=== PATIENT | female | born 1955 | race Caucasian/White ===

== ENCOUNTER 2017-03-04 15:05 | Outpatient (CLI) | payer OTHER ==
--- NOTE | 2017-03-04 17:49 | RAD ---
LUMBAR SPINE FOUR VIEW 03/04/17 HISTORY: Lumbar radiculopathy. COMPARISON: Lumbar spine MRI 2016. There is enlargement of the left L5 transverse process which articulates with the sacrum, lumbosacra l transitional vertebra. There is new anterolisthesis of L4 over L5 relative to the MRI examination. In the upright position, this is approximately 6 mm which with flexion increases to approximately 8 mm and with extension decreases to approximately 4 mm. No acute fracture of the vertebral bodies. IMPRESSION: 1. Left IIIa lumbosacral transitional vertebra. 2. New anterolisthesis of L4 with translation with flexion and extension. POS: [facility]
== END 2017-03-04 15:06 | disposition home or self-care (01) ==
LOC: TBSIIMAG 15:05
PROVIDERS: ATTEND Neurological Surgery
DX: M54.16 Radiculopathy, lumbar region (principal); M43.16 Spondylolisthesis, lumbar region
CPT/HCPCS: 72110

== ENCOUNTER 2017-03-10 06:48 | Outpatient (CLI) | payer OTHER ==
[2017-03-10] MEDS ORDERED: Gadobenate Dimeglumine 529 MG/1 ML (20ML VIAL) ONE (16:26)
--- NOTE | 2017-03-15 10:48 | MRI ---
EXAM: LUMBAR SPINE MRI WITH AND WITHOUT CONTRAST: HISTORY: Lumbar radiculopathy. Low back and right leg pain. Previous surgery 1 year ago. COMPARISON: 08/26/15. TECHNIQUE: Lumbar spine MRI is performed with and without intravenous Gadolinium administration. Multisequenti al, multiplanar imaging is performed. FINDINGS: Based on the previous examination, there appears to be partial sacralization of the L5 vertebral bod y. There is appropriate T1 marrow signal intensity of the lumbar vertebrae. Lumbar spine vertebral body height is maintained. There is no fracture. No significant STIR hyperintensity to suggest ed liang or ligamentous injury. No abnormal enhancement of the vertebral bodies. No abnormal enhancement of the thecal sac includin g the cauda equina and conus medullaris. There is symmetric signal intensity of the psoas muscles. Appropriate signal intensity of the visua lized solid organs. Conus medullaris terminates at the mid L1 level. There is stable edema involving bilateral pedicles at L5. T11-T12 and T12-L1: No significant central canal stenosis or foraminal narrowing. L1-L2: Adequate disk hydration. No significant central canal stenosis. Neural foramen are patent. L2-L3: Minimal disk desiccation. No significant loss of disk space height. No significant posteri or disk abnormality. No significant central canal stenosis. Foramina are patent. L3-L4: Disk desiccation without significant loss of disk space height. Mild ligamentum flavum thic kening and facet hypertrophy. No significant central canal stenosis. Foramen are patent. L4-L5: Disk desiccation with mild loss of disk space height. No significant posterior disk abnorma lity. No significant central canal stenosis. Neural foramen are patent. There is a small amount o f fluid in both intraarticular facet joints. The L5-S1 disk space level is excluded. Inferior to the L4-L5 disk space, in the right subarticular zone, there is a T2 hyperintense focus m easuring 1.2 cm. There is partial obscuration of the traversing right L5 nerve root. Based on the sagittal images, there is mild narrowing of the right neural foramen due to synovial cyst. The left neural foramen is patent. IMPRESSION: Limited evaluation of the L4-L5, L5-S1 levels. There appears to be a synovial cyst in the right sub articular zone inferior to the L4-L5 disk space with mass effect and displacement of the traversing right L5 nerve root. There is mild right foraminal narrowing at L5-S1, based upon the sagittal imag es. Evaluation is limited and incomplete. Additional imaging is recommended. Results of the study were discussed with Dr. Ziegler 03/15/17 at 8:57 a.m. Note, the patient was instructed to return for peewee tional/complete imaging of lumbar spine. The patient states she is claustrophobic and has, up to th is point, chosen not to come in for additional imaging. CODE CR POS: [facility]
== END 2017-03-10 06:49 | disposition home or self-care (01) ==
LOC: MRI 06:48
PROVIDERS: ATTEND Neurological Surgery
DX: M54.16 Radiculopathy, lumbar region (principal)
CPT/HCPCS: 72158; A9579

== ENCOUNTER 2017-04-05 10:15 | Outpatient (CLI) | payer OTHER | END 2017-04-05 10:16 | disposition home or self-care (01) | LOC: LABBT 10:15 | PROVIDERS: ATTEND Neurological Surgery | DX: Z01.818 Encounter for other preprocedural examination (principal); M43.16 Spondylolisthesis, lumbar region; M54.16 Radiculopathy, lumbar region ==

== ENCOUNTER 2017-04-12 10:10 | Day surgery (SDC) | payer OTHER ==
[2017-04-05 10:49] VITALS: BMI 28.9
[2017-04-12] MEDS ORDERED: CEFAZOLIN/Water 2 GM/20 ML SYRINGE ONE ×2 (11:45→19:39)
[2017-04-12] MEDS ORDERED: Midazolam HCl 2 mg/2 ml Vial ONE ×2 (11:56→17:36)
[2017-04-12] MEDS ORDERED: Albuterol Sulfate 2.5 mg/3 ml Neb ONE (12:00)
[2017-04-12] MEDS ORDERED: Fentanyl 100 MCG/2 ML VIAL ONE ×4 (13:29→17:19)
[2017-04-12] MEDS ORDERED: Promethazine HCl 25 MG/ML VIAL ONE (13:29)
[2017-04-12] MEDS ORDERED: Sodium Chloride 0.9% 0 ML ONE (13:39)
[2017-04-12] MEDS ORDERED: Bupivacaine/Epinephrine 0.25% 30 ML VIAL ONE (14:58)
[2017-04-12] MEDS ORDERED: Thrombin 5000 UNITS/5 ML VIAL ONE (15:03)
[2017-04-12] MEDS ORDERED: Propofol 200 MG/20 ML VIAL ONE (15:45)
[2017-04-12] MEDS ORDERED: ePHEDrine/0.9% NaCl/PF SYRINGE 50 mg/10 ml ONE (15:45)
[2017-04-12] MEDS ORDERED: Glycopyrrolate 0.2 MG/ML 5 ML SYRINGE ONE (15:45)
[2017-04-12] MEDS ORDERED: Lidocaine 1% PF 5 ML VIAL ONE (15:45)
[2017-04-12] MEDS ORDERED: PHENYLEPHRINE-NS 100 MCG/ML 10 ML SYRINGE ONE (15:45)
[2017-04-12] MEDS ORDERED: Ondansetron HCl/PF 4 MG/2 ML Vial ONE (15:45)
[2017-04-12] MEDS ORDERED: HYDROmorphone 0.5 MG/0.5 ML SYRINGE ONE (18:01)
[2017-04-12] MEDS ORDERED: tiZANidine HCl 4 MG TAB ONE (18:39)
[2017-04-12] MEDS ORDERED: HYDROcodone/Acetaminophen 5/325 mg Tablet ONE (19:18)
--- NOTE | 2017-04-13 13:00 | OP ---
DATE OF PROCEDURE: 04/12/2017 SURGEON: Stevenson Ziegler M.D. WINDOWS AND DOORS INSTALLER: Jad Richter PA-C. INDICATION: Pain. DIAGNOSES: Lumbar spondylolisthesis, lumbar synovial cyst, lumbar radiculopathy. PROCEDURES PERFORMED: Reoperation L4-L5 lumbar facetectomy, synovial cyst resection and posterolater al instrumented fusion with placement of allograft and placement of autograft. ANESTHESIA: General. TECHNIQUE: The patient was brought into the operating room and placed under general anesthesia. She was flipped from a supine to a prone position on the operating room table. A linear incision was pl anned over the L4-L5 segment. After prepping and draping and after an appropriate operative pause, t he incision was created. The soft tissues were swept away from midline. A self-retaining retractor was placed in the wound for optimal exposure. After confirming the appropriate levels, an Adson shana eur as well as a high-speed cutting drill bit as well as Kerrisons were used to perform facetectomy a t L4-L5 bilaterally. This included lamina. A synovial cyst was identified and subsequently resected . With the aide of C-arm fluoroscopy, pedicle screws were placed bilaterally at L4-L5. Rods were pl aced across the screw heads and final tightened. Intraoperative imaging was obtained to confirm appr opriate placement of hardware. Allograft and autograft material was placed within the lateral confin es of the instrumentation construct. The wound was irrigated. Hemostasis was maintained throughout. The wound was then closed in anatomic layers and a pressure dressing was applied. There were no kn own procedural complications.
== END 2017-04-13 20:00 | disposition home or self-care (01) ==
LOC: SDC 10:10
PROVIDERS: ATTEND Neurological Surgery
PROC: 0QB00ZZ Excision of Lumbar Vertebra, Open Approach (ICD-10-PCS; principal; 2017-04-12)
PROC: 00BY0ZZ Excision of Lumbar Spinal Cord, Open Approach (ICD-10-PCS; principal; 2017-04-12)
PROC: 0SG0071 Fusion of Lumbar Vertebral Joint with Autologous Tissue Substitute, Posterior Approach, Posterior Column, Open Approach (ICD-10-PCS; principal; 2017-04-12)
DX: M71.38 Other bursal cyst, other site (principal); M43.16 Spondylolisthesis, lumbar region; M54.16 Radiculopathy, lumbar region; F17.210 Nicotine dependence, cigarettes, uncomplicated; E78.5 Hyperlipidemia, unspecified; F32.9 Major depressive disorder, single episode, unspecified; F41.9 Anxiety disorder, unspecified; Z83.3 Family history of diabetes mellitus; Z82.49 Family history of ischemic heart disease and other diseases of the circulatory system; Z79.890 Hormone replacement therapy; Z79.1 Long term (current) use of non-steroidal anti-inflammatories (NSAID); Z79.51 Long term (current) use of inhaled steroids; Z79.899 Other long term (current) drug therapy; Z90.710 Acquired absence of both cervix and uterus; Z90.49 Acquired absence of other specified parts of digestive tract; Z98.890 Other specified postprocedural states
CPT/HCPCS: 76001; 96374; A4216; C1713; J1170; J2001; J2250; J2405; J2550; J2704; J3010; J3490; J7611

== ENCOUNTER 2017-06-03 08:31 | Outpatient (CLI) | payer OTHER ==
--- NOTE | 2017-06-03 10:00 | RAD ---
TWO VIEWS LUMBAR SPINE: Date: 06-03-17 Comparison: 03-04-17 History: Lumbar radiculopathy. FINDINGS: Bilateral L4 and L5 pedicle screws are present with vertically oriented interlocking rods. There is a nterolisthesis of L4 on L5 measuring approximately 6 mm, similar when compared to the 03-04-17 exam. N o evidence for acute fracture or dislocation. No radiographic evidence of hardware failure. There is an incompletely imaged sclerotic focus within the proximal femur on the right. If there are symptoms referable to the right hip, dedicated right hip imaging is advised as this sclerotic lesion is not fu lly imaged. IMPRESSION: Post-operative changes within the lumbar spine as detailed above. Incidental findings noted. Code T POS: [facility]
== END 2017-06-03 08:32 | disposition home or self-care (01) ==
LOC: TBSIIMAG 08:31
PROVIDERS: ATTEND Neurological Surgery
DX: M54.16 Radiculopathy, lumbar region (principal)
CPT/HCPCS: 72100

== ENCOUNTER 2019-01-09 14:49 | Outpatient (CLI) | payer OTHER ==
--- NOTE | 2019-01-09 15:51 | BD ---
"PRELIMINARY REPORT" DEXA BONE DENSITY SCAN: 01/09/2019 HISTORY: Low back pain. FINDINGS: BMD (g/cm2) T-SCORE LEFT FEMORAL NECK 0.742 -1.0 TOTAL PROXIMAL LEFT FEMUR 0.971 0.2 RIGHT FEMORAL NECK 0.703 -1.3 TOTAL PROXIMAL RIGHT FEMUR 0.938 0.0 The FRAX Fracture Risk Assessment Tool reports a 10 year fracture risk in an untreated patient at 15% for major osteoporotic fracture and 0.5%-0.6% for hip fracture. IMPRESSION: Osteopenia within the right femoral neck correlates with a moderately increased risk for fracture. Transcribed Date/Time: 01/09/2019 5:51 PM
--- NOTE | 2019-01-09 16:11 | MMO ---
Bilateral MAMMO Bilat Screen [facility]. CLINICAL HISTORY: Patient is 63 years old and is seen for screening. The patient has no family history of breast cancer. The patient has no personal history of cancer. VIEWS: The views performed were: bilateral craniocaudal with tomosynthesis and bilateral mediolateral oblique with tomosynthesis. FILMS COMPARED: The present examination has been compared to a prior imaging study performed at [facility] on 09/02/2011. MAMMOGRAM FINDINGS: The breasts are heterogeneously dense, which could obscure a lesion on mammography. There are benign appearing calcifications seen in both breasts. There are no suspicious masses, suspicious calcifications, or new areas of architectural distortion. IMPRESSION: THERE IS NO MAMMOGRAPHIC EVIDENCE OF MALIGNANCY. A ROUTINE FOLLOW-UP MAMMOGRAM IN 1 YEAR IS RECOMMENDED. THE RESULTS OF THIS EXAM WERE SENT TO THE PATIENT. ACR BI-RADS Category 2 - Benign finding MAMMOGRAPHY NOTE: 1. A negative mammogram report should not delay a biopsy if a dominant of clinically suspicious mass is present. 2. Approximately 10% to 15% of breast cancers are not detected by mammography. 3. Adenosis and dense breasts may obscure an underlying neoplasm. Reported by: SRUTHI PARK MD Electonically Signed: [id number]
== END 2019-01-09 14:50 | disposition home or self-care (01) ==
LOC: BICMAMMO 14:49
PROVIDERS: ATTEND Family Medicine
DX: Z12.31 Encounter for screening mammogram for malignant neoplasm of breast (principal); M54.5 Low back pain; M85.851 Other specified disorders of bone density and structure, right thigh
CPT/HCPCS: 77063; 77067; 77080

== ENCOUNTER 2019-05-15 20:30 | Outpatient (CLI) | payer OTHER | END 2019-05-15 20:31 | disposition home or self-care (01) | LOC: SLEEPLAB 20:30 | PROVIDERS: ATTEND Family Medicine | DX: G47.33 Obstructive sleep apnea (adult) (pediatric) (principal); G47.9 Sleep disorder, unspecified; G47.00 Insomnia, unspecified; I10 Essential (primary) hypertension; J44.9 Chronic obstructive pulmonary disease, unspecified; R09.02 Hypoxemia | CPT/HCPCS: 95810 ==

== ENCOUNTER 2019-09-01 14:11 | Outpatient (CLI) | payer OTHER ==
--- NOTE | 2019-09-01 14:44 | RAD ---
RADIOGRAPH CHEST 2 VIEW: DATE: 09/01/2019 HISTORY: 64-year-old female with dyspnea FINDINGS: The cardiothymic silhouette is normal. The visualized lung noyola are clear. The osseous structures a ppear normal. IMPRESSION: Normal.
--- NOTE | 2019-09-01 14:47 | RAD ---
RADIOGRAPH LEFT ANKLE 3 VIEWS: DATE: 09/01/2019 HISTORY: 64-year-old female with left ankle swelling, erythema, heat, and pain. FINDINGS: Ankle mortise is congruent. There is no evidence of fracture. There is no subluxation or dislocation. There are no high-grade degenerative changes. Talar dome is maintained. There is diffuse soft tissue edema, especially laterally. No evidence of destructive osseous lesion. IMPRESSION: 1. No osseous abnormality. 2. Soft tissue edema.
--- NOTE | 2019-09-01 15:24 | RAD ---
THREE VIEWS OF THE LEFT FOOT: 09/01/19 INDICATION: Swelling and redness in the left foot for seven days. FINDINGS: There is scattered osteoarthrosis of the left foot. No acute fracture or subluxation is evident. Lis franc alignment is preserved. Radiopaque foreign body is demonstrated. IMPRESSION: No acute osseous abnormality. POS: [facility]
== END 2019-09-01 14:12 | disposition home or self-care (01) ==
LOC: BICRAD 14:11
PROVIDERS: ATTEND Family Medicine
DX: M25.572 Pain in left ankle and joints of left foot (principal); R59.1 Generalized enlarged lymph nodes; R60.0 Localized edema
CPT/HCPCS: 71046

== ENCOUNTER 2020-02-23 14:58 | Outpatient (CLI) | payer OTHER ==
--- NOTE | 2020-02-23 15:37 | RAD ---
RIGHT FOOT 3 VIEWS: HISTORY: Fall. Pain. COMPARISON: None. FINDINGS: Nondisplaced fracture through the proximal phalanx neck small toe with minimal impaction. Moderate d orsal edema of the forefoot. IMPRESSION: Minimally impacted fracture proximal phalanx small toe neck. POS: [facility]
--- NOTE | 2020-02-23 15:51 | BD ---
EXAM: DEXA bone density examination HISTORY: 64-year-old postmenopausal female for screening COMPARISON: None FINDINGS: Right femoral neck--bone mineral density0.684; T score -1.5 Total proximal right femur--bone mineral density 1.013; T score 0.6 Left femoral neck--bone mineral density0.717; T score -1.2 Total proximal left femur--bone mineral density 0.942; T score 0.0 IMPRESSION: Osteopenia. This patient has a 10 year WHO fracture risk of a major osteoporotic fracture of 8.3% and of a hip fracture of 0.8%.
--- NOTE | 2020-02-23 16:07 | MMO ---
Bilateral MAMMO Bilat Screen [facility]. CLINICAL HISTORY: Patient is 64 years old and is seen for screening. The patient has no family history of breast cancer. The patient has no personal history of cancer. VIEWS: The views performed were: bilateral craniocaudal with tomosynthesis and bilateral mediolateral oblique with tomosynthesis. FILMS COMPARED: The present examination has been compared to prior imaging studies performed at [facility] on 09/02/2011 and 01/09/2019. This study has been interpreted with the assistance of computer-aided detection. MAMMOGRAM FINDINGS: The breasts are heterogeneously dense, which could obscure a lesion on mammography. There are benign appearing calcifications seen in both breasts. There are no suspicious masses, suspicious calcifications, or new areas of architectural distortion. IMPRESSION: THERE IS NO MAMMOGRAPHIC EVIDENCE OF MALIGNANCY. A ROUTINE FOLLOW-UP MAMMOGRAM IN 1 YEAR IS RECOMMENDED. THE RESULTS OF THIS EXAM WERE SENT TO THE PATIENT. ACR BI-RADS Category 2 - Benign finding MAMMOGRAPHY NOTE: 1. A negative mammogram report should not delay a biopsy if a dominant of clinically suspicious mass is present. 2. Approximately 10% to 15% of breast cancers are not detected by mammography. 3. Adenosis and dense breasts may obscure an underlying neoplasm. Reported by: SIRISHA KUMAR MD Electonically Signed: [id number]
== END 2020-02-23 14:59 | disposition home or self-care (01) ==
LOC: BICRAD 14:58
PROVIDERS: ATTEND Family Medicine
DX: Z12.31 Encounter for screening mammogram for malignant neoplasm of breast (principal); S99.0 Physeal fracture of calcaneus; M81.0 Age-related osteoporosis without current pathological fracture; S92.511A Displaced fracture of proximal phalanx of right lesser toe(s), initial encounter for closed fracture; M85.851 Other specified disorders of bone density and structure, right thigh; M85.852 Other specified disorders of bone density and structure, left thigh
CPT/HCPCS: 77063; 77067; 77080

== ENCOUNTER 2021-08-08 14:29 | Outpatient (CLI) | payer BC | END 2021-08-08 14:30 | disposition home or self-care (01) | LOC: BICMAMMO 14:29 | PROVIDERS: ATTEND Family Medicine | DX: N63.23 Unspecified lump in the left breast, lower outer quadrant (principal) | CPT/HCPCS: 77066; G0279 ==

== ENCOUNTER 2021-10-06 17:30 | Outpatient (CLI) | payer BC | END 2021-10-06 17:31 | disposition home or self-care (01) | LOC: SLEEPLAB 17:30 | PROVIDERS: ATTEND Internal Medicine Critical Care Medicine | DX: G47.33 Obstructive sleep apnea (adult) (pediatric) (principal); R53.83 Other fatigue; R06.83 Snoring; J44.9 Chronic obstructive pulmonary disease, unspecified; G47.00 Insomnia, unspecified; R09.89 Other specified symptoms and signs involving the circulatory and respiratory systems; R09.02 Hypoxemia | CPT/HCPCS: 95800 ==

== ENCOUNTER 2021-12-19 19:30 | Outpatient (CLI) | payer BC, MEDICARE | END 2021-12-19 19:31 | disposition home or self-care (01) | LOC: SLEEPLAB 19:30 | PROVIDERS: ATTEND Internal Medicine Critical Care Medicine | DX: G47.33 Obstructive sleep apnea (adult) (pediatric) (principal); R53.83 Other fatigue; R09.89 Other specified symptoms and signs involving the circulatory and respiratory systems; R06.83 Snoring; G47.10 Hypersomnia, unspecified; R09.02 Hypoxemia; E66.9 Obesity, unspecified; Z68.35 Body mass index [BMI] 35.0-35.9, adult | CPT/HCPCS: 95811 ==

== ENCOUNTER 2022-04-09 11:33 | Outpatient (CLI) | payer BC, MEDICARE | END 2022-04-09 11:34 | disposition home or self-care (01) | LOC: RAD 11:33 | PROVIDERS: ATTEND Internal Medicine Critical Care Medicine | DX: R06.00 Dyspnea, unspecified (principal) | CPT/HCPCS: 71046 ==

== ENCOUNTER 2022-05-24 06:14 | Inpatient (IN) | payer BC, MEDICARE ==
[2022-05-24] MEDS ORDERED: Ondansetron PF 4 MG/2 ML Vial ONE (06:40)
[2022-05-24] MEDS ORDERED: Magnesium 2 GM/50 ML BAG (IN WATER) ONE (06:40)
[2022-05-24] MEDS ORDERED: Ipratropium/Albuterol 3 ML NEB ONE (06:45)
[2022-05-24] MEDS ORDERED: LORazepam 2 MG/ML SYR.(CARPUJECT) ONE (07:00)
[2022-05-24] MEDS ORDERED: Levofloxacin 500 mg/D5W 100 ml Premix Bag ONE (07:40)
[2022-05-24 07:47] LABS: SARS-CoV-2 NAA Rapid Test Not Detected (NotDetected)
[2022-05-24 07:50] LABS: Hemoglobin 9.6 g/dL (12.0-16.0); Mean Corpuscular Hemoglobin 22.2 pg (27.0-31.0); Mean Corpuscular Volume 77.7 fl (78.0-98.0); Red Blood Cell (RBC) Count 4.32 mill/uL (4.20-5.40)
[2022-05-24 07:54] LABS: ALT (SGPT) 12 U/L (8-55); AST (SGOT) 18 U/L (5-34); Albumin 3.9 g/dL (3.4-4.8); Alkaline Phosphatase 103 U/L (40-110); Anion Gap 15 mmol/L (10-20); BUN (Urea Nitrogen) 16 mg/dL (9.8-20.1); Bilirubin, Total 0.4 mg/dL (0.2-1.2); Calc. Creatinine Clearance 0 mL/min (70-130); Calcium 8.7 mg/dL (7.8-10.44); Carbon Dioxide 31 mmol/L (23-31); Chloride 97 mmol/L (98-107); Estimated GFR 94; Globulin 3.7 g/dL (2.4-3.5); Glucose 112 mg/dL (80-115); Potassium 4.7 mmol/L (3.5-5.1); Protein, Total 7.6 g/dL (5.8-8.1); Sodium 138 mmol/L (136-145)
[2022-05-24 08:06] LABS: #Eosinphils 0.6 thou/uL (0.0-0.7); #Lymphocytes 2.2 thou/uL (1.20-3.40); #Monocytes 0.5 thou/uL (0.11-0.59); #Neutrophils 6.8 thou/uL (1.40-6.50); %Basophils 0.1 % (0.0-1.0); %Eosinophils 5.6 % (0.0-10.0); %Lymphocytes 21.9 % (21.0-51.0); %Neutrophils 67.3 % (42.0-75.0); Anisocytosis SLIGHT = 6-15 cells (100X) (0-5/hpf); MDiff Complete? YES; Mean Corpuscular HGB CONC 28.6 g/dL (32.0-36.0); Mean Platelet Volume 9.6 fL (7.4-10.4); Microcytosis SLIGHT = 6-15 cells (100X) (0-5/hpf); Platelet Count 185 10x3/uL (130-400); Platelet Morphology Comment Appears Adequate; RBC Distribution Width 16.6 % (11.5-14.5); White Blood Cell (WBC) Count 10.1 10x3/uL (4.8-10.8)
[2022-05-24] MEDS ORDERED: Calcium Carbonate 500 MG ChewTAB PO PRN (09:13)
[2022-05-24] MEDS ORDERED: Acetaminophen 325 MG TAB PO PRN (09:13)
[2022-05-24] MEDS: methylPREDNISolone Sod Succ 40 MG VIAL IVP SCH ×3 (12:00→23:47)
[2022-05-24 13:02] VITALS: BMI 35.5
[2022-05-24 13:24] LABS: Actual Bicarbonate (HCO3a) 37.3 mEq/L (22-28); Base Excess (BEa) 6.8 mEq/L (-2.0 to +3.0); Calcium, Ionized (arterial) 1.11 mmol/L (1.12-1.30); Carboxyhemoglobin (COHb) 0.6 gm% (0.0-3.0); Hemoglobin (Hb) 9.6 g/dL (12.0-16.0)
[2022-05-24 13:30] LABS: CO2 Tension 100.8 mmHg (35.0-45.0); Puncture Site RBA; pH, Arterial 7.19 (7.35-7.45)
[2022-05-24] MEDS: Ipratropium/Albuterol 3 ML NEB NEB SCH ×2 (13:40→19:12)
[2022-05-24 14:15] LABS: Actual Bicarbonate (HCO3v) 34 mEq/L (22-28); Base Excess 3.5 mEq/L (-2.0 to +3.0); Calcium, Ionized (venous) 1.11 mmol/L (1.16-1.32); Chloride (VBG) 99 mmol/L (98-106); Hemoglobin (Hb) 9.7 g/dL (11.7-16.1); Potassium (VBG) 5.36 mmol/L (3.70-5.30); Sodium 136.7 mmol/L (133-146)
[2022-05-24 14:18] LABS: pH (venous) 7.18 (7.32-7.43)
[2022-05-24] MEDS: Sodium Chloride 0.9% 1,000 ML IV SCH ×2 (14:35→20:56)
[2022-05-24 17:59] LABS: Actual Bicarbonate (HCO3v) 36 mEq/L (22-28); Base Excess 6.7 mEq/L (-2.0 to +3.0); Calcium, Ionized (venous) 1.05 mmol/L (1.16-1.32); Chloride (VBG) 100 mmol/L (98-106); Hemoglobin (Hb) 9.4 g/dL (11.7-16.1); Potassium (VBG) 5.85 mmol/L (3.70-5.30); Sodium 135.2 mmol/L (133-146); pH (venous) 7.23 (7.32-7.43)
[2022-05-24] MEDS: Mometasone/Formoterol 200/5 60 PUFF INH SCH (19:15)
[2022-05-24] MEDS ORDERED: Non-Formulary Item 1 EACH (Citalopram Hydrobromide [Celexa] 40 MG Tablet) PO SCH (21:00)
[2022-05-24] MEDS: Citalopram 20 MG TAB PO SCH (22:14)
[2022-05-24] MEDS: Atorvastatin Calcium 40 MG TAB PO SCH (22:14)
[2022-05-25] MEDS: Ipratropium/Albuterol 3 ML NEB NEB SCH ×6 (01:18→22:42)
[2022-05-25] MEDS ORDERED: Midazolam HCl 2 mg/2 ml Vial SLOW IVP SCH (01:30)
[2022-05-25 04:58] LABS: #Lymphocytes 0.5 thou/uL (1.20-3.40); #Monocytes 0.1 thou/uL (0.11-0.59); #Neutrophils 6.4 thou/uL (1.40-6.50); %Eosinophils 0.1 % (0.0-10.0); %Lymphocytes 6.5 % (21.0-51.0); %Neutrophils 91.5 % (42.0-75.0); Hemoglobin 8.2 g/dL (12.0-16.0); Mean Corpuscular HGB CONC 28.9 g/dL (32.0-36.0); Mean Corpuscular Hemoglobin 22.6 pg (27.0-31.0); Mean Corpuscular Volume 78.2 fl (78.0-98.0); Mean Platelet Volume 9.2 fL (7.4-10.4); Platelet Count 246 10x3/uL (130-400); RBC Distribution Width 16.4 % (11.5-14.5); Red Blood Cell (RBC) Count 3.64 mill/uL (4.20-5.40)
[2022-05-25 05:29] LABS: Anion Gap 9 mmol/L (10-20); BUN (Urea Nitrogen) 21 mg/dL (9.8-20.1); Calc. Creatinine Clearance 110 mL/min (70-130); Calcium 7.7 mg/dL (7.8-10.44); Carbon Dioxide 32 mmol/L (23-31); Chloride 98 mmol/L (98-107); Estimated GFR 97; Glucose 149 mg/dL (80-115); Potassium 5.3 mmol/L (3.5-5.1); Sodium 134 mmol/L (136-145)
[2022-05-25] MEDS: Sodium Chloride 0.9% 1,000 ML IV SCH (06:21)
[2022-05-25] MEDS: methylPREDNISolone Sod Succ 40 MG VIAL IVP SCH ×3 (06:30→17:50)
[2022-05-25] MEDS: Mometasone/Formoterol 200/5 60 PUFF INH SCH ×2 (07:04→19:19)
[2022-05-25 08:13] LABS: Actual Bicarbonate (HCO3v) 27 mEq/L (22-28); Base Excess 0.6 mEq/L (-2.0 to +3.0); Calcium, Ionized (venous) 1.02 mmol/L (1.16-1.32); Chloride (VBG) 100 mmol/L (98-106); Hemoglobin (Hb) 9.4 g/dL (11.7-16.1); Potassium (VBG) 4.79 mmol/L (3.70-5.30); Sodium 132.7 mmol/L (133-146); pH (venous) 7.32 (7.32-7.43)
[2022-05-25] MEDS ORDERED: FLU VACC QS2022-23(65YR UP)/PF 240 MCG/0.7 ML SYRINGE IM ONE (09:00)
[2022-05-25] MEDS ORDERED: Non-Formulary Item 1 EACH (Tiotropium Bromide 4 GM Inhaler) IH SCH (09:00)
[2022-05-25] MEDS: Nicotine 7 MG PATCH TD SCH (10:08)
[2022-05-25] MEDS: Fluticasone Propionate Nasal Spray 16 gm Bottle NASAL SCH ×2 (10:08→20:04)
[2022-05-25] MEDS: AFRIN NASAL MIST 15 ML BOT NS SCH ×2 (10:54→16:31)
[2022-05-25] MEDS: Citalopram 20 MG TAB PO SCH ×2 (11:14→20:03)
[2022-05-25] MEDS: ALPRAZolam 0.25 MG TAB PO PRN ×2 (11:21→20:03)
[2022-05-25] MEDS: Atorvastatin Calcium 40 MG TAB PO SCH (20:03)
[2022-05-25] MEDS: Melatonin 3 MG TAB PO PRN (20:03)
[2022-05-25] MEDS ORDERED: AFRIN NASAL MIST 15 ML BOT NS SCH ×2 (21:00)
[2022-05-25] MEDS: Oxymetazoline HCl 0.05% (30 ML BOT) NS SCH (21:11)
[2022-05-26] MEDS: methylPREDNISolone Sod Succ 40 MG VIAL IVP SCH ×2 (00:25→05:15)
[2022-05-26] MEDS: Ipratropium/Albuterol 3 ML NEB NEB SCH ×6 (02:40→23:31)
[2022-05-26 05:06] LABS: #Basophils 0.1 thou/uL (0.0-0.2); #Lymphocytes 0.4 thou/uL (1.20-3.40); #Monocytes 0.2 thou/uL (0.11-0.59); #Neutrophils 8.6 thou/uL (1.40-6.50); %Basophils 0.9 % (0.0-1.0); %Lymphocytes 4.4 % (21.0-51.0); %Monocytes 2.4 % (0.0-10.0); %Neutrophils 92.4 % (42.0-75.0); Hemoglobin 7.8 g/dL (12.0-16.0); Mean Corpuscular HGB CONC 29.7 g/dL (32.0-36.0); Mean Corpuscular Hemoglobin 22.6 pg (27.0-31.0); Mean Corpuscular Volume 76.2 fl (78.0-98.0); Mean Platelet Volume 8.8 fL (7.4-10.4); Platelet Count 263 10x3/uL (130-400); RBC Distribution Width 16.5 % (11.5-14.5); Red Blood Cell (RBC) Count 3.46 mill/uL (4.20-5.40); White Blood Cell (WBC) Count 9.3 10x3/uL (4.8-10.8)
[2022-05-26 05:22] LABS: Anion Gap 9 mmol/L (10-20); BUN (Urea Nitrogen) 17 mg/dL (9.8-20.1); Calc. Creatinine Clearance 105 mL/min (70-130); Calcium 8.2 mg/dL (7.8-10.44); Carbon Dioxide 32 mmol/L (23-31); Chloride 101 mmol/L (98-107); Estimated GFR 96; Glucose 142 mg/dL (80-115); Potassium 4.5 mmol/L (3.5-5.1); Sodium 137 mmol/L (136-145)
[2022-05-26] MEDS: Mometasone/Formoterol 200/5 60 PUFF INH SCH ×2 (07:42→18:45)
[2022-05-26] MEDS: ALPRAZolam 0.25 MG TAB PO PRN ×3 (09:09→23:17)
[2022-05-26] MEDS: Fluticasone Propionate Nasal Spray 16 gm Bottle NASAL SCH ×2 (09:11→21:35)
[2022-05-26] MEDS: Oxymetazoline HCl 0.05% (30 ML BOT) NS SCH ×2 (09:11→23:19)
[2022-05-26] MEDS: Nicotine 7 MG PATCH TD SCH (09:12)
[2022-05-26 19:42] LABS: Iron Binding Capacity, Total 406 mcg/dL (265-497)
[2022-05-26 19:43] LABS: Iron 20 ug/dL (50-170)
[2022-05-26] MEDS: Atorvastatin Calcium 40 MG TAB PO SCH (21:30)
[2022-05-26] MEDS: Citalopram 20 MG TAB PO SCH (21:30)
[2022-05-26] MEDS: Melatonin 3 MG TAB PO PRN (21:31)
[2022-05-27] MEDS: Ipratropium/Albuterol 3 ML NEB NEB SCH ×3 (03:20→11:03)
[2022-05-27] MEDS: Mometasone/Formoterol 200/5 60 PUFF INH SCH (07:30)
[2022-05-27 07:49] LABS: #Monocytes 0.8 thou/uL (0.11-0.59); %Basophils 0.1 % (0.0-1.0); %Eosinophils 0.5 % (0.0-10.0); %Lymphocytes 20.6 % (21.0-51.0); %Monocytes 8.5 % (0.0-10.0); %Neutrophils 70.4 % (42.0-75.0)
[2022-05-27 07:50] LABS: Hemoglobin 8.2 g/dL (12.0-16.0); Mean Corpuscular HGB CONC 28.2 g/dL (32.0-36.0); Mean Corpuscular Hemoglobin 21.5 pg (27.0-31.0); Mean Corpuscular Volume 76.2 fl (78.0-98.0); Mean Platelet Volume 8.4 fL (7.4-10.4); Platelet Count 291 10x3/uL (130-400); RBC Distribution Width 17.2 % (11.5-14.5); Red Blood Cell (RBC) Count 3.79 mill/uL (4.20-5.40); White Blood Cell (WBC) Count 9.9 10x3/uL (4.8-10.8)
[2022-05-27 08:00] LABS: Anion Gap 10 mmol/L (10-20); BUN (Urea Nitrogen) 14 mg/dL (9.8-20.1); Calc. Creatinine Clearance 107 mL/min (70-130); Calcium 8.4 mg/dL (7.8-10.44); Carbon Dioxide 32 mmol/L (23-31); Chloride 100 mmol/L (98-107); Estimated GFR 96; Glucose 88 mg/dL (80-115); Potassium 3.7 mmol/L (3.5-5.1); Sodium 138 mmol/L (136-145)
[2022-05-27 08:23] LABS: Hypochromia MODERATE=16-30 cells (100X) (0-5/hpf); MDiff Complete? YES; Microcytosis SLIGHT = 6-15 cells (100X) (0-5/hpf); Platelet Morphology Comment Appears Adequate; Polychromasia SLIGHT = 2-3 cells (100X) (0-2/hpf)
[2022-05-27] MEDS: Fluticasone Propionate Nasal Spray 16 gm Bottle NASAL SCH (08:44)
[2022-05-27] MEDS: ALPRAZolam 0.25 MG TAB PO PRN (08:44)
[2022-05-27] MEDS: Oxymetazoline HCl 0.05% (30 ML BOT) NS SCH (08:44)
[2022-05-27] MEDS: Nicotine 7 MG PATCH TD SCH (08:45)
[2022-05-27] MEDS ORDERED: predniSONE 20 MG TAB PO SCH (09:00)
[2022-05-27 09:19] VITALS: BP 139/67; TEMP 98.7
== END 2022-05-27 15:03 | disposition home or self-care (01) | DRG 189 ==
LOC: ERS 06:14 → CCU 09:18 → T4-A 05-26 13:56
PROVIDERS: ADMIT Family Medicine; ATTEND Family Medicine
PROC: 5A09357 Assistance with Respiratory Ventilation, Less than 24 Consecutive Hours, Continuous Positive Airway Pressure (ICD-10-PCS; principal; 2022-05-24)
PROC: 5A0935A Assistance with Respiratory Ventilation, Less than 24 Consecutive Hours, High Flow/Velocity Cannula (ICD-10-PCS; 2022-05-25)
DX: J96.21 Acute and chronic respiratory failure with hypoxia (principal); J44.1 Chronic obstructive pulmonary disease with (acute) exacerbation; Z20.822 Contact with and (suspected) exposure to COVID-19; E86.0 Dehydration; I95.9 Hypotension, unspecified; D64.9 Anemia, unspecified; G47.33 Obstructive sleep apnea (adult) (pediatric); E78.5 Hyperlipidemia, unspecified; F41.9 Anxiety disorder, unspecified; D63.1 Anemia in chronic kidney disease; I10 Essential (primary) hypertension; E66.9 Obesity, unspecified; Z68.35 Body mass index [BMI] 35.0-35.9, adult; Z79.899 Other long term (current) drug therapy; Z79.51 Long term (current) use of inhaled steroids; Z79.52 Long term (current) use of systemic steroids; Z90.710 Acquired absence of both cervix and uterus; Z90.49 Acquired absence of other specified parts of digestive tract; Z98.890 Other specified postprocedural states; Z99.81 Dependence on supplemental oxygen; Z87.891 Personal history of nicotine dependence; Z80.9 Family history of malignant neoplasm, unspecified; Z82.49 Family history of ischemic heart disease and other diseases of the circulatory system
CPT/HCPCS: 36415; 36600; 71045; 71250; 74176; 80048; 80053; 82805; 83540; 83550; 83605; 83880; 84145; 84484; 85025; 87040; 93005; 93306; 94640; 94660; 96365; 96375; J1650; J1956; J2060; J2250; J2405; J2920; J3475; J3490; J7050; J7512; J7620

== ENCOUNTER 2022-10-22 08:40 | Outpatient (CLI) | payer BC, MEDICARE | END 2022-10-22 08:41 | disposition home or self-care (01) | LOC: RAD 08:40 | PROVIDERS: ATTEND Internal Medicine Critical Care Medicine | DX: R06.00 Dyspnea, unspecified (principal) | CPT/HCPCS: 71046 ==

== ENCOUNTER 2022-11-11 09:10 | Day surgery (SDC) | payer BC, MEDICARE ==
[~2022-11-11 09:10] MED LIST: Acetaminophen 500 MG TAB PO SCH; diphenhydrAMINE 25 MG CAP PO SCH
[2022-11-11] MEDS ORDERED: Acetaminophen 500 MG TAB ONE (10:36)
[2022-11-11] MEDS ORDERED: diphenhydrAMINE 25 MG CAP ONE (10:36)
[2022-11-11 14:01] VITALS: BP 168/75; TEMP 98.1
== END 2022-11-11 14:16 | disposition home or self-care (01) ==
LOC: ONC/OP 09:10
PROVIDERS: ATTEND Internal Medicine
DX: D64.9 Anemia, unspecified (principal)
CPT/HCPCS: 36430; 86850; 86900; 86901; P9016

== ENCOUNTER 2023-01-18 06:01 | Day surgery (SDC) | payer MEDICARE, BC ==
[2023-01-15 12:31] VITALS: BMI 32.2
[2023-01-18] MEDS ORDERED: Ipratropium/Albuterol 3 ML NEB ONE (07:04)
[2023-01-18] MEDS ORDERED: Ipratropium/Albuterol 3 ML NEB NEB SCH (07:15)
[2023-01-18] MEDS ORDERED: Albuterol HFA (OR) 200 PUFF INH ONE (07:19)
[2023-01-18] MEDS ORDERED: Midazolam HCl 2 mg/2 ml Vial ONE (07:19)
[2023-01-18] MEDS ORDERED: PROPOFOL 200 MG/20 ML VIAL ONE (08:00)
[2023-01-18 10:04] LABS: Hematocrit 39.6 % (36.0-47.0); Hemoglobin 11.7 g/dL (12.0-16.0)
[2023-01-19 15:10] LABS: EliA Celiac New Method **** NEW METHOD ****; t-Transglutaminase (tTG) IgA 0.9 EliAU/mL (<7 Negative); t-Transglutaminase (tTG) IgG 1.1 EliAU/mL (<7 Negative)
== END 2023-01-18 10:21 | disposition home or self-care (01) ==
LOC: SDC 06:01
PROVIDERS: ATTEND Internal Medicine Gastroenterology
PROC: 0W3P8ZZ Control Bleeding in Gastrointestinal Tract, Via Natural or Artificial Opening Endoscopic (ICD-10-PCS; principal; 2023-01-18)
DX: D50.9 Iron deficiency anemia, unspecified (principal); R13.10 Dysphagia, unspecified; J44.9 Chronic obstructive pulmonary disease, unspecified; K44.9 Diaphragmatic hernia without obstruction or gangrene; E78.00 Pure hypercholesterolemia, unspecified; Z87.59 Personal history of other complications of pregnancy, childbirth and the puerperium; Z90.710 Acquired absence of both cervix and uterus; Z98.890 Other specified postprocedural states; Z90.49 Acquired absence of other specified parts of digestive tract; Z99.81 Dependence on supplemental oxygen; Z79.899 Other long term (current) drug therapy; Z87.891 Personal history of nicotine dependence
CPT/HCPCS: 83516; 85014; 85018; J2250; J2704; J7620

== ENCOUNTER 2023-02-18 10:03 | Outpatient (CLI) | payer BC, MEDICARE | END 2023-02-18 10:04 | disposition home or self-care (01) | LOC: BICMAMMO 10:03 | PROVIDERS: ATTEND Family Medicine | DX: Z12.31 Encounter for screening mammogram for malignant neoplasm of breast (principal) | CPT/HCPCS: 77063; 77067 ==

== ENCOUNTER 2023-03-16 14:38 | Emergency (ER) | payer BC, MEDICARE ==
[2023-03-16] MEDS ORDERED: Morphine 4 MG/ML VIAL ONE ×2 (15:09→15:25)
[2023-03-16 16:35] LABS: #Eosinphils 0.4 thou/uL (0.0-0.7); #Monocytes 0.5 thou/uL (0.11-0.59); #Neutrophils 5.6 thou/uL (1.40-6.50); %Basophils 0.3 % (0.0-1.0); %Eosinophils 5.8 % (0.0-10.0); %Lymphocytes 13.6 % (21.0-51.0); %Monocytes 6.1 % (0.0-10.0); %Neutrophils 73.9 % (42.0-75.0); Hematocrit 38.9 % (36.0-47.0); Hemoglobin 12.4 g/dL (12.0-16.0); Mean Corpuscular HGB CONC 31.9 g/dL (32.0-36.0); Mean Corpuscular Hemoglobin 29.8 pg (27.0-31.0); Mean Corpuscular Volume 93.5 fl (78.0-98.0); Mean Platelet Volume 9.3 fL (7.4-10.4); Platelet Count 244 10x3/uL (130-400); RBC Distribution Width 13.8 % (11.5-14.5); Red Blood Cell (RBC) Count 4.16 mill/uL (4.20-5.40); White Blood Cell (WBC) Count 7.6 10x3/uL (4.8-10.8)
[2023-03-16] MEDS ORDERED: Orphenadrine Citrate 60 MG/2 ML VIAL ONE (16:39)
[2023-03-16] MEDS ORDERED: HYDROcodone/Acetaminophen 10/325 mg Tablet ONE (16:41)
[2023-03-16 16:58] LABS: Glucose 90 mg/dL (80-115)
[2023-03-16 16:59] LABS: ALT (SGPT) 7 U/L (8-55); AST (SGOT) 15 U/L (5-34); Albumin 4.1 g/dL (3.4-4.8); Alkaline Phosphatase 160 U/L (40-110); Anion Gap 10 mmol/L (10-20); BUN (Urea Nitrogen) 8 mg/dL (9.8-20.1); Bilirubin, Total 0.3 mg/dL (0.2-1.2); Calc. Creatinine Clearance 0 mL/min (70-130); Calcium 9.3 mg/dL (7.8-10.44); Carbon Dioxide 36 mmol/L (23-31); Chloride 92 mmol/L (98-107); Estimated GFR 84; Globulin 3.7 g/dL (2.4-3.5); Potassium 3.7 mmol/L (3.5-5.1); Protein, Total 7.8 g/dL (5.8-8.1); Sodium 134 mmol/L (136-145)
== END 2023-03-16 17:27 | disposition home or self-care (01) ==
LOC: ERS 14:38
DX: S42.291A Other displaced fracture of upper end of right humerus, initial encounter for closed fracture (principal); J44.9 Chronic obstructive pulmonary disease, unspecified; E78.5 Hyperlipidemia, unspecified; Z87.891 Personal history of nicotine dependence; Z79.899 Other long term (current) drug therapy; W01.0XXA Fall on same level from slipping, tripping and stumbling without subsequent striking against object, initial encounter; Y92.000 Kitchen of unspecified non-institutional (private) residence as the place of occurrence of the external cause
CPT/HCPCS: 36415; 80053; 85025; 96372; 96374; J2270; J2360

== ENCOUNTER 2023-04-02 13:43 | Emergency (ER) | payer BC, MEDICARE | END 2023-04-02 15:08 | disposition home or self-care (01) | LOC: ERS 13:43 | DX: B86 Scabies (principal); B02.9 Zoster without complications; J44.9 Chronic obstructive pulmonary disease, unspecified; E78.5 Hyperlipidemia, unspecified; Z87.891 Personal history of nicotine dependence; Z79.899 Other long term (current) drug therapy | CPT/HCPCS: 99282 ==

== ENCOUNTER 2023-06-07 11:11 | Emergency (ER) | payer BC, MEDICARE ==
[2023-06-07] MEDS ORDERED: HYDROcodone/Acetaminophen 5/325 mg Tablet ONE (13:18)
[2023-06-07] MEDS ORDERED: Cyclobenzaprine 10 MG TAB ONE (13:18)
== END 2023-06-07 13:55 | disposition home or self-care (01) ==
LOC: ERS 11:11
DX: S22.32XA Fracture of one rib, left side, initial encounter for closed fracture (principal); J44.9 Chronic obstructive pulmonary disease, unspecified; E78.5 Hyperlipidemia, unspecified; X58.XXXA Exposure to other specified factors, initial encounter; Z87.891 Personal history of nicotine dependence; Z79.899 Other long term (current) drug therapy
CPT/HCPCS: 71046; 93005

== ENCOUNTER 2023-06-14 11:44 | Outpatient (CLI) | payer BC, MEDICARE | END 2023-06-14 11:45 | disposition home or self-care (01) | LOC: BICRAD 11:44 | PROVIDERS: ATTEND Family Medicine | DX: S22.32XG Fracture of one rib, left side, subsequent encounter for fracture with delayed healing (principal) ==

== ENCOUNTER 2024-04-13 09:52 | Outpatient (CLI) | payer BC, MEDICARE | END 2024-04-13 09:53 | disposition home or self-care (01) | LOC: RAD 09:52 | PROVIDERS: ATTEND Internal Medicine Critical Care Medicine | DX: R06.00 Dyspnea, unspecified (principal) | CPT/HCPCS: 71046 ==